=== PATIENT | male | born 1935 | race Caucasian/White ===

== ENCOUNTER 2016-10-11 10:47 | Day surgery (SDC) | payer BC ==
--- NOTE | ~2016-10-11 | OP ---
Record Of Operation [facility] [address] [place]. [address] NAME: MINOR CHOPRA : 39 STATUS : REG [facility] [place] PAT#: [id number] AGE: 81 ADM/REG DATE : 10/11/16 MR#: [id number] REPORT SERV DATE: 10/11/16 DICTATED BY: JOSE MORTON III DATE: 10/11/16 REPORT STATUS : Draft TRANSCRIBED BY: MODL DATE: 10/11/16 DATE OF PROCEDURE: 10/11/2016 PREOPERATIVE DIAGNOSES: 1. Right ureteral calculus. 2. Right ureteral stent. POSTOPERATIVE DIAGNOSES: 1. Right ureteral calculus. 2. Right ureteral stent. PROCEDURES: Cystoscopy, stent removal, right ureteroscopy, and basket extraction of stone with stent placement. SURGEON: Jose Morton M.D. ANESTHESIA: General. SPECIMEN: Stone. DRAIN: A 6 x 26 cm double-J ureteral stent. INDICATION: Mr. Chopra is a 81-year-old white male, who had a stent placed by Dr. Raj Pham secondary to obstructive pyelonephritis from a distal ureteral calculus. He has completed his course of antibiotics and consent is obtained for stent removal and stone manipulation. DESCRIPTION OF PROCEDURE: After consent was obtained, the patient was identified and he was taken to the OR and put to sleep. He was positioned in the low lithotomy position and prepped and draped in the usual fashion. The 22-[place] cystoscope was made ready and advanced along the course of the urethra. 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 The prostatic fossa was open consistent with a prior TURP. The stent was grasped with the Alligator forceps and pulled out to the urethral meatus. The distal coil was cut off and Glidewire was passed up the stent. I was unable to advance it out of the proximal coil of the stent. Therefore, the wire and stent were removed. The cystoscope was reinserted into the bladder and I was able to pass the wire up the right ureter. The 6-degree ureteroscope was made ready and advanced into the right ureter. Stone was visualized, grasped with a Nitinol basket, and removed and passed off as specimen. The ureter was reinspected. There were no fragments or other stones noted. There was some bleeding around the ureteral orifice, so decided to replace the stent. Therefore, the wire was backloaded through the cystoscope and a 6 x 26 cm double-J ureteral stent was advanced over the wire. When in position, the wire was removed. The stent was noted to coil in the renal collecting system, as well as the bladder. String was left attached. The bladder was then drained. The scope was removed. The patient was awakened and taken to recovery in stable condition. Record Of Operation [address] [address] NAME: MINOR CHOPRA : 39 STATUS : REG [facility] [place] PAT#: [id number] AGE: 81 ADM/REG DATE : 10/11/16 MR#: [id number] REPORT SERV DATE: 10/11/16 DICTATED BY: JOSE MORTON III DATE: 10/11/16 REPORT STATUS : Draft TRANSCRIBED BY: GRETTA DATE: 10/11/16 PH/GRETTA Jose Morton III, M.D. / [id number] CC: Jerry Neves III, M.D.
[~2016-10-11 10:47] MED LIST: ALTA5 PO; ASAB PO; DCN100 PO; FERROUS SULF325 M1 PO; FLORASTOR250 MG PO; GLUCOPHAGE1000 MG PO; GLUCOTROL5 PO; GLUCPH PO; INDAPAMIDE1.25 MG PO; IRON PO; K-TABS10 MEQ PO; KAON-CL-1010 MEQ PO; KDUR10 PO; LEVAQUIN750 MG PO; LIPITOR20 PO; LIPITOR40 PO; LOZOLTAB PO; METFORMIN PO; MULTIVITAMI1 PO; NORV5 PO; XANAX1 MG PO; [UNRECOGNIZED DRUG - REMARK]
[2016-10-17 15:42] LABS: SOURCE OF STONE Kidney (()); STONE COMPOSITION TWO DNR (())
[2016-10-24] MEDS ORDERED: TOPXL25 PO (14:19)
[2016-10-28] MEDS ORDERED: ULTRAM50 PO (14:29)
== END 2016-10-11 16:26 | disposition home or self-care (01) ==
LOC: SDC 10:47
PROVIDERS: Urology
PROC: 0TC68ZZ Extirpation of Matter from Right Ureter, Via Natural or Artificial Opening Endoscopic (ICD-10-PCS; 2016-10-11)
PROC: 0T768DZ Dilation of Right Ureter with Intraluminal Device, Via Natural or Artificial Opening Endoscopic (ICD-10-PCS; 2016-10-11)
PROC: 0T768DZ Dilation of Right Ureter with Intraluminal Device, Via Natural or Artificial Opening Endoscopic (ICD-10-PCS; principal; 2016-10-11 12:45)
DX: N20.1 Calculus of ureter (principal); E11.22 Type 2 diabetes mellitus with diabetic chronic kidney disease; I12.9 Hypertensive chronic kidney disease with stage 1 through stage 4 chronic kidney disease, or unspecified chronic kidney disease; N18.9 Chronic kidney disease, unspecified; I25.10 Atherosclerotic heart disease of native coronary artery without angina pectoris; M19.90 Unspecified osteoarthritis, unspecified site; F41.9 Anxiety disorder, unspecified; D64.9 Anemia, unspecified; K21.9 Gastro-esophageal reflux disease without esophagitis; Z95.5 Presence of coronary angioplasty implant and graft; Z88.8 Allergy status to other drugs, medicaments and biological substances; Z95.0 Presence of cardiac pacemaker; Z90.49 Acquired absence of other specified parts of digestive tract; Z87.01 Personal history of pneumonia (recurrent); Z98.41 Cataract extraction status, right eye; Z98.42 Cataract extraction status, left eye; Z98.890 Other specified postprocedural states
CPT/HCPCS: 74420; 82365; 82962; C1758; C1769; C2617; J2405; J3010; Q9967